=== PATIENT | male | born 1945 | race Hispanic/Latino ===

== ENCOUNTER 2024-10-05 13:32 | Emergency (ER) | payer OTHER ==
--- OUTSIDE RECORDS SUMMARY | 2024-10-05 13:35 | XMS REPORT | Continuity of Care Document ---
Author Name Unknown Address [address] [place] [address] [address] [place], [place] [id number] [place] [address] Address [address] [facility] [address] [place] [address] Care Team Providers Care License And Permit Specialist Name Role Phone CHRIS BRADFORD Primary Care Physician UnavailKLEBER Doan Attending Clinician Unavailable CHRIS BRADFORD Attending Clinician Unavailable LESLYE ABEL Attending Clinician Unavailable PUMA GIBSON Attending Clinician UnavailKLEBER Doan Admitting Clinician Unavailable Payers Payer Name Policy Type Policy Number Effective Date Expirati on Date Source [employer] MED[employer]ARE ADVANTAGE [id number] 2019 00:00:00 [employer] MEDICARE ADV [id number] 00:00:00 Allergies, Adverse Reactions, Alerts Allergy Name Allergy Type Status Severity Reaction(s) Onset Date Inactive Date Treating Clinician Comments Source NO KNOWN ALLERGIE S Drug Class Active [facility] Encounters Start Date/Time End Date/Time Encounter Type Admission Type Attending Clinicians Care Facility Care Department Encounter ID Source 2021-05-20 01:46:29 Outpatient KLEBER RASCON [facility] [id number] [facility] 2021-10-05 12:30:00 2021-10-05 13:23:50 Outpatient CHRIS FRANCISCO [facility] [id number] [facility] 2020-11-21 10:30:00 2020-11-21 10:30:00 Outpatient LESLYE ZHENG [facility] [id number] [facility] 2020-09-22 13:00:00 2020-09-22 13:00:00 Outpatient CHRISTOFER RASCONEL [facility] [id number] [facility] 2020-07-28 09:00:00 2020-07-28 09:00:00 Outpatient R [facility] [id number] [facility] 2020-07-18 10:30:00 2020-07-18 10:30:00 Outpatient R LESLYE ABEL [facility] [id number] [facility] 2020-07-06 09:45:00 2020-07-06 09:45:00 Outpatient R KLEBER LEVIN [facility] [id number] [facility] 2020-06-05 09:00:00 2020-06-05 09:00:00 Outpatient R PUMA IGBSON [facility] [id number] [facility] 2020-03-14 11:30:00 2020-03-14 11:30:00 Outpatient R LESLYE ABEL [facility] [id number] [facility] 2019-11-09 13:30:00 2019-11-09 13:30:00 Outpatient R LESLYE ABEL [facility] [id number] [facility]
--- NOTE | 2024-10-05 15:29 | RAD REPORT ---
EXAMINATION: CT CHEST WITHOUT CONTRAST CLINICAL INDICATION: posterior left rib pain TECHNIQUE: Routine CT scan of the chest without intravenous contrast. One or more of the following do se reduction techniques were used: Automated exposure control, adjustment of the mA and/or kV according to patient size, and/or iterative reconstruction. Unless otherwise specified, incidental fi ndings do not require dedicated imaging follow-up. COMPARISON: No prior exam. FINDINGS: LOWER NECK: Visualized thyroid gland and soft tissues are normal. LUNGS: Mild atelectasis is seen in the lung base on the left. PLEURA: Small to moderate loculated left pleural fluid. Chronic hemothorax is also possible. MEDIASTINUM AND LYMPH NODES: No mediastinal mass or fluid collection. Normal size mediastinal, hilar, and axillary lymph nodes. OSSEOUS STRUCTURES AND CHEST WALL: Posterior lateral left ninth, 10th, 11th rib fractures. Corticatio n of the fracture fragments is present suggesting subacute timeframe. UPPER ABDOMEN: No significant abnormalities. IMPRESSION: Several posterior lateral left rib fracture is likely subacute to chronic timeframe. Loculated dmqey-bd-[id number] left pleural fluid collection may be pleural effusion or chronic liquefie d hemothorax. Examination limited by lack of IV contrast.
--- NOTE | 2024-10-05 16:00 | ER ---
Nurse's Notes [facility] Name: Noel Son Jr Age: 79 yrs Sex: Male : 1945 Arrival Date: 10/05/2024 Time: 13:32 Bed 10 Private MD: Diagnosis: Subacute left posterior rib fractures - 9th, 10th, 11th;Essential (primary) hypertension Presentation: 10/05 14:31 Chief complaint: Patient states: went to urgent care to check my ribs , I broke my ribs iw in April, they did not want to do anything because my BP was over 200 systolic , takes BP medicine and has not taken it today , he does not remember what he takes , the original injury was from a slip and fall against a concrete wall. Coronavirus screen: At this time, the client does not indicate any symptoms associated with coronavirus-19. Ebola Screen: No symptoms or risks identified at this time. Initial Sepsis Screen: Does the patient meet any 2 criteria? No. Patient's initial sepsis screen is negative. Does the patient have a suspected source of infection? No. Patient's initial sepsis screen is negative. Risk Assessment: Do you want to hurt yourself or someone else? Patient reports no desire to harm self or others. Onset of symptoms was October 05, 2024. 14:31 Method Of Arrival: Wheelchair iw 14:31 Acuity: GAB 3 iw 14:34 Chief complaint: Patient states: he also feel on Friday and hurt his left knee. iw Historical: - Allergies: 14:33 No Known Allergies; iw - PMHx: 14:33 Hypertensive disorder; Diabetes mellitus; iw Screenin:00 [facility] ED Fall Risk Assessment (Adult) History of falling in the last 3 months, jb4 including since admission No falls in past 3 months (0 pts) Confusion or Disorientation No (0 pts) Intoxicated or Sedated No (0 pts) Impaired Gait No (0 pts) Mobility Assist Device Used No (0 pt) Altered Elimination No (0 pt) Score/Fall Risk Level 0 - 2 = Low Risk Oriented to surroundings, Maintained a safe environment. Abuse screen: Denies threats or abuse. Nutritional screening: No deficits noted. Tuberculosis screening: No symptoms or risk factors identified. Assessment: 16:19 General: Appears in no apparent distress. comfortable, Behavior is calm, cooperative. jb4 Pain: Denies pain. Neuro: Level of Consciousness is awake, alert, obeys commands, Oriented to person, place, time, situation. Cardiovascular: Patient's skin is warm and dry. Respiratory: Airway is patent Respiratory effort is even, unlabored, Respiratory pattern is regular, symmetrical. Derm: Skin is intact, Skin is pink, warm \T\ dry. Pt noted to have a bleeding mass on his right index finger. Musculoskeletal: Circulation, motion, and sensation intact. Range of motion: intact in all extremities. Vital Signs: 14:31 BP 203 / 99; Pulse 77; Resp 18; Temp 98.4; Pulse Ox 99% on R/A; Weight 79.83 kg; Height iw 5 ft. 9 in. ; 16:19 BP 215 / 91; Pulse 78; Resp 16; Pulse Ox 98% ; jb4 14:31 Body Mass Index 25.99 (79.83 kg, 175.26 cm) iw 16:19 Provider notified of Blood pressure, see MAR jb4 ED Course: 13:37 Patient arrived in ED. cj3 14:03 Alejandra Bashir PA-C is PHCP. sb4 14:03 Jc Moreno MD is Attending Physician. sb4 14:33 Triage completed. iw 14:35 Arm band placed on. iw 15:[address] In Process Unspecified. EDMS 15:48 John Beaver DO is Attending Physician. sb4 15:58 Gaetano Milan DO is Referral Physician. sb4 15:59 Pamela Laws DO is Referral Physician. sb4 16:00 Patient has correct armband on for positive identification. Bed in low position. Call jb4 light in reach. Side rails up X 1. Provided Education on: plan of care. 16:00 No provider procedures requiring assistance completed. Patient did not have IV access jb4 during this emergency room visit. 16:19 Artie Clark, CASSY is Primary Nurse. jb4 Administered Medications: 16:25 Drug: cloNIDine PO 0.2 mg PO once Route: PO; jb4 16:37 Follow up: Response: Medication administered at discharge. jb4 Medication: 16:37 VIS not applicable for this client. jb4 Outcome: 15:59 Discharge ordered by . sb4 16:39 Discharged to home via wheelchair, with family, jb4 16:39 Condition: stable 16:39 Discharge instructions given to patient, Instructed on discharge instructions, follow up and referral plans. no drinking with medication, no driving heavy equipment, medication usage, Demonstrated understanding of instructions, follow-up care, medications, Prescriptions given X 2, 16:39 Patient left the ED. jbCarlos A Signatures: Dispatcher [employer] EDMaria Elena Ulrich RN RN iw Bryson, James, RN RN jb4 Alejandra Bashir PALeonidas PALeonidas [email or web address] Zofia Smith cj3 Corrections: (The following items were deleted from the chart) 14:33 14:31 Chief complaint: Patient states: went to urgent care to check my ribs , I broke iw my ribs in April, they did not want to do anything because my BP was over 200 systolic , takes BP medicine and has not taken it today , he does not remember what he takes iw
--- NOTE | 2024-10-05 16:00 | EDPHYS ---
Physician Documentation [facility] Name: Noel Son Jr Age: 79 yrs Sex: Male : 1945 Arrival Date: 10/05/2024 Time: 13:32 Bed 10 Private MD: ED Physician John Beaver HPI: 10/05 14:44 This 79 yrs old Male presents to ER via Wheelchair with complaints of High sb4 Blood Pressure. 14:44 Went to urgent care to have his ribs checked that he states he fractured back in sb4 April. He just wants to make sure that they are healing properly. Only reports mild pain. No shortness of breath, no hemoptysis. States his blood pressure was elevated urgent care so they would not see him. States that he does take blood pressure medicine daily but did not take it today, is not sure of the name. He denies any chest pain, dizziness, headache. Historical: - Allergies: 14:33 No Known Allergies; iw - PMHx: 14:33 Hypertensive disorder; Diabetes mellitus; iw ROS: 14:44 Constitutional: Negative for fever, chills, and weight loss, sb4 14:44 MS/extremity: Positive for Per HPI, 14:44 All other systems are negative, Exam: 14:44 Constitutional: This is a well developed, well nourished patient who is awake, alert, sb4 and in no acute distress. Head/Face: Normocephalic, atraumatic. Eyes: Extra-ocular motions intact. Periorbital areas with no swelling, redness, or edema. ENT: Mucous membranes moist. Chest/axilla: Normal chest wall appearance and motion. Nontender with no deformity. No lesions are appreciated. Cardiovascular: Regular rate and rhythm with a normal S1 and S2. Respiratory: No increased work of breathing, no retractions or nasal flaring. Skin: Warm, dry with normal turgor. Normal color with no rashes, no lesions, and no evidence of cellulitis. Vital Signs: 14:31 BP 203 / 99; Pulse 77; Resp 18; Temp 98.4; Pulse Ox 99% on R/A; Weight 79.83 kg; Height iw 5 ft. 9 in. ; 16:19 BP 215 / 91; Pulse 78; Resp 16; Pulse Ox 98% ; jb4 14:31 Body Mass Index 25.99 (79.83 kg, 175.26 cm) iw 16:19 Provider notified of Blood pressure, see MAR jb4 MDM: 14:05 Medical Screening Exam initiated sb4 16:13 Data reviewed: vital signs, nurses notes, radiologic studies, I have discussed the sb4 patient's presentation/case with the attending Emergency Department Physician; and as a result, I will discharge patient. Counseling: I had a detailed discussion with the patient and/or guardian regarding the historical points, exam findings, and any diagnostic results supporting the discharge/admit diagnosis, radiology results, the need for outpatient follow up, for definitive care, to return to the emergency department if symptoms worsen or persist or if there are any questions or concerns that arise at home. 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 It has decreased in size compared to chest x-ray in June 2024. Patient is not having any shortness of breath, respiratory distress. His oxygen is within normal limits. Did discuss this with attending physician who is in agreement with plan that patient is safe for discharge home with outpatient follow-up. 10/05 14:40 Order name: Chest Wo Con CT; Complete Time: 15:30 iw Administered Medications: 16:25 Drug: cloNIDine PO 0.2 mg PO once Route: PO; jb4 16:37 Follow up: Response: Medication administered at discharge. jb4 Disposition: 15:32 Co-signature as Attending Physician, Jc Moreno MD I reviewed the patient's care jj9 provided by the Advanced Practice Provider and agree with the diagnosis and treatment plan. Disposition Summary: 10/05/24 15:59 Discharge Ordered Notes: Location: Home sb4 Problem: new sb4 Symptoms: have improved sb4 Condition: Stable sb4 Diagnosis - Subacute left posterior rib fractures - 9th, 10th, 11th sb4 - Essential (primary) hypertension sb4 Followup: sb4 - With: Gaetano Milan, DO - When: 1 week - Reason: Recheck today's complaints, Continuance of care, Re-evaluation by your physician Followup: sb4 - With: Pamela Laws, DO - When: 1 week - Reason: Recheck today's complaints, Continuance of care, Re-evaluation by your physician Discharge Instructions: - Discharge Summary Sheet sb4 - Hypertension, Adult, [id number]-cc-[id number] sb4 - How to Take Your Blood Pressure, Asaf-qm-Ilza sb4 Forms: - Patient Portal Instructions sb4 - Leadership Thank You Letter sb4 Prescriptions: - Hydrochlorothiazide 25 mg Oral Tablet - take 1 tablet ORAL route once daily .; 30 tablet; Refills: 0, Product Selection sb4 Permitted - methocarbamol 500 mg Oral tablet - take 2 tablets ORAL route 4 times per day PRN pain; 20 tablet; Refills: 0, sb4 Product Selection Permitted Signatures: Dispatcher [employer] Maria Elena De León, CASSY MADERA Artie Clark RN RN jb4 Alejandra Bashir PA-C PA-C sb4 Jc Moreno MD MD jj9
[2024-10-05] MEDS ORDERED: cloNIDine HCL 0.1 MG TAB ONE (16:18)
[2024-10-05 20:15] VITALS: TEMP 98.4
[2024-10-05 20:16] VITALS: BP 215/91; O2SAT 98
== END 2024-10-05 16:39 | disposition home or self-care (01) ==
LOC: ER 13:32
DX: S22.42XA Multiple fractures of ribs, left side, initial encounter for closed fracture (principal); I10 Essential (primary) hypertension
CPT/HCPCS: 71250; 99283